=== PATIENT | female | born 1990 | race Caucasian/White ===

== ENCOUNTER 2017-06-20 02:43 | Inpatient (IN) | payer SELFPAY ==
[~2017-06-20] VITALS: Ht 152.4 cm; Wt 53.4 kg
[2017-06-20 05:22] VITALS: BP 119/72; PULSE 97; RESP 16; TEMP 98.2; O2SAT 97
[2017-06-20] MEDS ORDERED: ACETAMINOPHEN 325 MG TAB PO PRN (05:45)
[2017-06-20] MEDS ORDERED: diphenhydrAMINE HCL 50 MG CAP - HS PRN PO (05:45)
[2017-06-20] MEDS ORDERED: diphenhydrAMINE HCL 50 MG/ML VIAL - HS PRN IM (05:45)
[2017-06-20] MEDS ORDERED: ALUMINUM/MAGNESIUM/SIMETH 30 ML CUP PO PRN (05:45)
[2017-06-20] MEDS ORDERED: MAGNESIUM HYDROXIDE SUSP 30 ML CUP PO PRN (05:45)
[2017-06-20] MEDS ORDERED: hydrOXYzine HCL 50 MG TAB PO PRN (05:45)
[2017-06-20] MEDS: NICOTINE 21 MG/24 HR PATCH T-DERMAL SCH (08:19)
[2017-06-20] MEDS ORDERED: NICOTINE 21 MG/24 HR PATCH T-DERMAL SCH (10:30)
--- NOTE | 2017-06-20 10:41 | HHI.HP ---
Provisional Diagnosis Admission Date Jun 20, 2017 at 05:04 [place] I. Schizophrenia chronic paranoid type of 20.0, cognitive impairment r 41.89 Certification of Person's Competence To Provide Express and Informed Consent I have personally examined Kimberly Richmond , a person being served at [facility] on, Jun 20, 2017 10:23. Express and informed consent means consent voluntarily given in writing, by a competent person, after sufficient explanation and disclosure of the subject matter involved to enable the person to make a knowing and willful decision without any element of force, fraud, deceit, duress, or other form of constraint or coercion. This person is 18 years of age or older, is not now known to be incompetent to consent to treatment with a guardian advocate, and does not have a health care surrogate or proxy currently making medical treatment decisions. I have found this person to be one of the following: [] Competent to provide express and informed consent, as defined above, for voluntary admission to this facility and is competent to provide express and informed consent for treatment. He/she has the consistent capacity to make well reasoned, willful, and knowing decisions concerning his or her medical or mental health treatment. The person fully and consistently understands the purpose of the admission for examination/placement and is fully capable of personally exercising all rights assured [place]] Incompetent to provide express and informed consent to voluntary admission , and this is incompetent to provide express and informed consent to treatment. The person must be transferred to involuntary status and a petition for a guardian advocate filed with the Circuit Court. [] Refusing to provide express and informed consent to voluntary admission but is competent to provide express and informed consent for treatment. The person must be discharged or transferred to involuntary status. Form shall be completed within 24 hours of a person's arrival at the receiving facility and filed in the clinical record of each person: 1. Admitted on a voluntary basis 2. Permitted to provide express and informed consent to his/her own treatment 3. Allowed to transfer from involuntary to voluntary status 4. Prior to permitting a person to consent to his or her own treatment after having been previously found incompetent to consent to treatment. History of Present Illness Capacity: Lacks Capacity Psych Chief Complaint: noncompliance medication increased paranoia HPI Patient is a 27 year-old female comes here from [facility] Under [place] act signed by Dr. Arredondo dated 127 at 2230 hrs. it document reviewed and essentially stating patient out of psych meds getting paranoid and anxious states she is addicted to drugs states she wants to hurt herself states that she left she would try to her herself though plan history of suicide attempts and past urine toxicology negative with the facility. Patient transferred here under the [place] act. It appears the patient moved here with the past few weeks her month or so from [place] to live with her brother and mother. She had been receiving Zyprexa 15 mg at bedtime and Invega Sustenna 156 mg monthly. Appears but is somewhat extended interval between her moving here attempts to find clinicians in this area leading to patient's exacerbation of her mental illness. The physician at the emergency department did give the patient Zyprexa 15 mg orally last night. At the present time patient resting quietly in a bed nurse morgan present throughout session. Patient is an alert small female who appears significantly younger than her stated age. She is calm cooperative is somewhat confusing and disorganized. She does know her name, she knows she is in a hospital, she does not know the city. Though she notices [place]. She does not know the year the month the day or the date. She denies any voices at the present time though at times appear she is responding to internal stimuli. She make vague statements of self-harm. She is aware of her medications and does wish to continue them. However at the present time I feel patient does not have the capacity to make these decisions. It appears she has cognitive impairment. I will restart the end vague orally at 6 mg daily but only with consent of perhaps some other brother is health care surrogate. At this time patient does meet criteria for further inpatient care I will do first opinion request second opinion and as mentioned above will ask for healthcare surrogate and guardian advocate. Hopeless to be fairly short stay. Patient tolerates the oral intake of for to 3 days will then give her the Invega Sustenna injection. Patient to return home with family Review of Systems Constitutional: DENIES: Diaphoretic episodes, Fatigue, Fever, Weight gain, Weight loss, Chills, Dizziness, Change in appetite, Night Sweats Endocrine: DENIES: Abnorml menstrual pattern, Heat/cold intolerance, Polydipsia , Polyuria, Polyphagia Eyes: DENIES: Blurred vision, Diplopia, Eye inflammation, Eye pain, Vision loss , Photosensitivity, Double Vision Ears, nose, mouth, throat: DENIES: Tinnitus, Hearing loss, Vertigo, Nasal discharge, Oral lesions, Throat pain, Hoarseness, Ear Pain, Running Nose, Epistaxis, Sinus Pain, Toothache, Odynophagia Cardiovascular: DENIES: Chest pain, Palpitations, Syncope, Dyspnea on Exertion , PND, Lower Extremity Edema, Orthopnea, Claudication Gastrointestinal: DENIES: Abdominal pain, Black stools, Bloody stools, Constipation, Diarrhea, Nausea, Vomiting, Difficulty Swallowing, Anorexia Genitourinary: DENIES: Abnormal vaginal bleeding, Dysmenorrhea, Dyspareunia, Sexual dysfunction, Urinary frequency, Urinary incontinence, Urgency, Hematuria , Dysuria, Nocturia, Vaginal discharge Musculoskeletal: DENIES: Joint pain, Muscle aches, Stiffness, Joint Swelling, Back pain, Neck pain Integumentary: DENIES: Abnormal pigmentation, Pruritus, Rash, Nail changes, Breast masses, Breast skin changes, Nipple discharge Hematologic/lymphatic: DENIES: Bruising, Lymphadenopathy Immunologic/allergic: DENIES: Eczema, Urticaria Neurologic: DENIES: Abnormal gait, Headache, Localized weakness, Paresthesias, Seizures, Speech Problems, Tremor, Poor Balance Psychiatric: COMPLAINS OF: Anxiety, Confusion (vague), Hallucinations, Suicidal Ideation (vague) Past Psych History Psychological trauma history Unknown at this time Violence risk - others (6 mos) Low Violence risk - self (6 mos) Low to medium Substance Abuse History Drugs/Alcohol past 12 months Patient states she smokes large amount of cigarettes Past Family Social History Coded Allergies: No Known Allergies (Verified Allergy, Unknown, 06/20/17) Current Medications Medications (Trade) Dose Ordered Sig/Lizy Route Start Time Stop Time Status Last Admin (Atarax) 50 mg Q6H PRN PO 06/20/17 05:45 (Benadryl) 50 mg HS PRN PO 06/20/17 05:45 (Benadryl Inj) 50 mg HS PRN IM 06/20/17 05:45 (Tylenol) 650 mg Q4H PRN PO 06/20/17 05:45 (Milk Of Magnesia Liq) 30 ml DAILY PRN PO 06/20/17 05:45 (Mag-Al Plus Susp Liq) 30 ml Q6H PRN PO 06/20/17 05:45 (Habitrol 21 Mg Patch.24 Hr) 1 patch DAILY T-DERMAL 06/20/17 09:00 06/20/17 08:19 Miscellaneous Information 1 DAILY T-DERMAL 06/21/17 09:00 Family Psych History Unknown at this time Social History Patient recently moved here from [place] about living with mother and brother long history mental illness documented in [place] Patient's Strengths (min. 2) Patient verbal intellectual self care appears cooperative Physical Exam Patient medically clear [facility] the present time patient resting quietly in her bed is in no acute distress, no respiratory distress, no complaints of abdominal pain. Patient moves all 4 extremities DIFFICULTY no abnormal motor movements noted Vital Signs Vital Signs Date Time Temp Pulse Resp B/P (MAP) Pulse Ox O2 Delivery O2 Flow Rate FiO2 06/20/17 05:22 98.2 97 16 119/72 (88) 97 Mental Status Examination Appearance: Appropriate Consciousness: Alert Orientation: Person, Place, Date/Time (mildly confused confused) Motor Activity: Normal gait Speech: Hesitant, Other (childlike) Language: Adequate Fund of Knowledge: Poor Memory: Impaired Mood: Sad Affect: Other (good range and intensity) Thought Process & Associations: Linear, Other (childlike) Thought Content: Other (childlike) Hallucination Type: Auditory (vague) Delusion Type: Paranoid Suicidal Ideation: Yes (vague) Suicidal Plan: No Suicidal Intention: No Homicidal Ideation: No Homicidal Plan: No Homicidal Intention: No Insight: Poor Judgment: Poor Assessment & Plan Problem List: (1) Paranoid type schizophrenia, chronic state ICD Codes: F20.0 - Paranoid schizophrenia (2) Cognitive impairment ICD Codes: R41.89 - Other symptoms and signs involving cognitive functions and awareness Assessment & Plan Estimated LOS: 5-7 days this time patient does meet criteria for involuntary psychiatric hospitalization of the [place] act I'll do first opinion request second opinion. If her she does not have capacity thus I'll ask for healthcare surrogate and guardian advocate. With the permission we'll restart her Zyprexa , and oral and vague area for 2 or 3 days then give her the Invega sustained. Discharge Planning Probable return home with family need to verify mental health follow-up in the community Request HC Surrog/Guard Advoc?: Yes Kale Aviles MD Jun 20, 2017 10:41
[2017-06-20] MEDS: PALIPERIDONE ER 6 MG TAB PO SCH (16:30)
[2017-06-20 18:00] VITALS: BP 138/66; PULSE 91; RESP 18; TEMP 98.3; O2SAT 98
[2017-06-20 21:08] VITALS: BP 138/66; PULSE 91; RESP 17; TEMP 98.3; O2SAT 99
[2017-06-21 05:34] VITALS: BP 110/70; PULSE 82; RESP 17; TEMP 98.3; O2SAT 98
[2017-06-21] MEDS: REMOVE OLD PATCH T-DERMAL SCH (08:07)
[2017-06-21] MEDS: NICOTINE 21 MG/24 HR PATCH T-DERMAL SCH (08:07)
[2017-06-21] MEDS: PALIPERIDONE ER 6 MG TAB PO SCH (08:07)
--- NOTE | 2017-06-21 12:06 | PD.PSY.CON ---
Provisional Diagnosis Admission Date Jun 20, 2017 at 05:04 [place] I. Schizophrenia chronic paranoid type of 20.0, cognitive impairment r 41.89 History of Present Illness Service Psychiatry Consult Requested By Dr. Aviles Reason for Consult Second opinion Primary Care Physician Unknown HPI Patient is a 27 year-old female comes here from [facility] Under [place] act signed by Dr. Arredondo dated 127 at 2230 hrs. it document reviewed and essentially stating patient out of psych meds getting paranoid and anxious states she is addicted to drugs states she wants to hurt herself states that she left she would try to her herself though plan history of suicide attempts and past urine toxicology negative with the facility. Patient transferred here under the [place] act. It appears the patient moved here with the past few weeks her month or so from [place] to live with her brother and mother. She had been receiving Zyprexa 15 mg at bedtime and Invega Sustenna 156 mg monthly. Appears but is somewhat extended interval between her moving here attempts to find clinicians in this area leading to patient's exacerbation of her mental illness. The physician at the emergency department did give the patient Zyprexa 15 mg orally last night. At the present time patient resting quietly in a bed nurse morgan present throughout session. Patient is an alert small female who appears significantly younger than her stated age. She is calm cooperative is somewhat confusing and disorganized. She does know her name, she knows she is in a hospital, she does not know the city. Though she notices [place]. She does not know the year the month the day or the date. She denies any voices at the present time though at times appear she is responding to internal stimuli. She make vague statements of self-harm. She is aware of her medications and does wish to continue them. However at the present time I feel patient does not have the capacity to make these decisions. It appears she has cognitive impairment. I will restart the end vague orally at 6 mg daily but only with consent of perhaps some other brother is health care surrogate. At this time patient does meet criteria for further inpatient care I will do first opinion request second opinion and as mentioned above will ask for healthcare surrogate and guardian advocate. Hopeless to be fairly short stay. Patient tolerates the oral intake of for to 3 days will then give her the Invega Sustenna injection. Patient to return home with family. The patient is a 27 years old woman, domicile with his mother and brother in [place], [place], single, she recently moved to [place] from [place], with psychiatric history of schizophrenia, bipolar disorder, multiple psychiatric hospitalization, her last hospitalization was in [place] in 2017, she has being in Zyprexa 15 mg and Invega 156 monthly in the past, she's not in psychotropics at the moment, no significant medical history, who was brought to the hospital under [place] act due to paranoia ideation and anxiety and also to suicidal ideation. Patient was consulted to me for second opinion. On my evaluation the patient is calm, cooperative, a little childish and labile. He says that the reason she is here is because her brother wanted her to restart her medications. She denies mood symptoms, actually she says that she feels happy, denies paranoia, denies suicidal and homicidal ideation, she denies visual and auditory hallucinations. No disorganized behavior or speech, loosening of associations, manic symptoms are present. She is oriented 3. Review of Systems Except as stated in HPI: all other systems reviewed are Neg Past Family Social History Coded Allergies: No Known Allergies (Verified Allergy, Unknown, 06/20/17) Current Medications Medications (Trade) Dose Ordered Sig/Lizy Route Start Time Stop Time Status Last Admin (Atarax) 50 mg Q6H PRN PO 06/20/17 05:45 (Benadryl) 50 mg HS PRN PO 06/20/17 05:45 (Benadryl Inj) 50 mg HS PRN IM 06/20/17 05:45 (Tylenol) 650 mg Q4H PRN PO 06/20/17 05:45 (Milk Of Magnesia Liq) 30 ml DAILY PRN PO 06/20/17 05:45 (Mag-Al Plus Susp Liq) 30 ml Q6H PRN PO 06/20/17 05:45 06/21/17 08:06 (Habitrol 21 Mg Patch.24 Hr) 1 patch DAILY T-DERMAL 06/20/17 09:00 06/21/17 08:07 Miscellaneous Information 1 DAILY T-DERMAL 06/21/17 09:00 06/21/17 08:07 (Invega Er) 6 mg DAILY PO 06/20/17 11:00 Future hold 06/21/17 08:07 (ZyPREXA) 15 mg HS PO 06/20/17 21:00 Future hold 06/20/17 20:40 Patient's Strengths (min. 2) Patient verbal intellectual self care appears cooperative Physical Exam Vital Signs Vital Signs Date Time Temp Pulse Resp B/P (MAP) Pulse Ox O2 Delivery O2 Flow Rate FiO2 06/21/17 05:34 98.3 82 17 110/70 (83) 98 Mental Status Examination Appearance: Appropriate Consciousness: Alert Orientation: Person, Place, Date/Time (mildly confused confused) Motor Activity: Normal gait Speech: Hesitant, Other (childlike) Language: Adequate Fund of Knowledge: Poor Memory: Impaired Mood: Sad Affect: Other (good range and intensity) Thought Process & Associations: Linear, Other (childlike) Thought Content: Other (childlike) Hallucination Type: Auditory (vague) Delusion Type: Paranoid Suicidal Ideation: Yes (vague) Suicidal Plan: No Suicidal Intention: No Homicidal Ideation: No Homicidal Plan: No Homicidal Intention: No Insight: Poor Judgment: Poor Assessment & Plan Problem List: (1) Paranoid type schizophrenia, chronic state ICD Codes: F20.0 - Paranoid schizophrenia Assessment & Plan: I have seen and examined this patient, reviewed recommendation, I agree and concur with Dr. Aviles's assessment and plan. (2) Cognitive impairment ICD Codes: R41.89 - Other symptoms and signs involving cognitive functions and awareness Assessment & Plan Estimated LOS: days Request HC Surrog/Guard Advoc?: Yes Micah Arias MD Jun 21, 2017 12:06
--- NOTE | 2017-06-21 15:17 | HHI.PYPN ---
Subjective Chief Complaint: noncompliance medication increased paranoia Remarks Patient seen in her room with nurse Lizz, chart review, patient compliant medication. Continues to isolate somewhat continues to acknowledge auditory hallucinations of a threatening frightening nature. She denies suicidality homicidality at this time. Patient so far tolerating oral medications without problems if she remains tolerating Topamax 21st will consider addition of the Invega Sustenna Review of Systems Except as stated in HPI: all other systems reviewed are Neg Mental Status Examination Appearance: Appropriate Consciousness: Alert Orientation: Person, Place, Date/Time (mildly confused confused) Motor Activity: Normal gait Speech: Hesitant, Other (childlike) Language: Adequate Fund of Knowledge: Poor Memory: Impaired Mood: Sad Affect: Other (good range and intensity) Thought Process & Associations: Linear, Other (childlike) Thought Content: Other (childlike) Hallucination Type: Auditory (vague) Delusion Type: Paranoid Suicidal Ideation: Yes (vague) Suicidal Plan: No Suicidal Intention: No Homicidal Ideation: No Homicidal Plan: No Homicidal Intention: No Insight: Poor Judgment: Poor Results Vitals/IOs Vital Signs Date Time Temp Pulse Resp B/P (MAP) Pulse Ox O2 Delivery O2 Flow Rate FiO2 06/21/17 05:34 98.3 82 17 110/70 (83) 98 Assessment & Plan Problem List: (1) Paranoid type schizophrenia, chronic state ICD Codes: F20.0 - Paranoid schizophrenia (2) Cognitive impairment ICD Codes: R41.89 - Other symptoms and signs involving cognitive functions and awareness Assessment & Plan Estimated LOS: days patient continues psychotic delusional, isolating somewhat though no behavioral issues. Compliant medications patient continues to show compliance consider vagus sustain of the next one to 2 days Justification for Cont. Inpt. At this time patient decompensated placed in the lower level of care Discharge Planning Return to family Request HC Surrog/Guard Advoc?: Yes Kale Aviles MD Jun 21, 2017 15:17
[2017-06-21 15:50] VITALS: BP 143/76; PULSE 79; RESP 16; TEMP 98.3; O2SAT 97
[2017-06-21 18:00] VITALS: BP 143/76; PULSE 79; RESP 15; TEMP 98.3; O2SAT 97
[2017-06-22 05:57] VITALS: BP 106/57; PULSE 97; RESP 16; TEMP 98; O2SAT 99
[2017-06-22] MEDS: REMOVE OLD PATCH T-DERMAL SCH (08:21)
[2017-06-22] MEDS: PALIPERIDONE ER 6 MG TAB PO SCH (08:21)
[2017-06-22] MEDS: NICOTINE 21 MG/24 HR PATCH T-DERMAL SCH (08:21)
--- NOTE | 2017-06-22 11:56 | HHI.PYPN ---
Subjective Chief Complaint: noncompliance medication increased paranoia Remarks Patient seen in day room with nurse Lizz, and counselor Alesia. Chart reviewed. Patient compliant medication. I'll cooperative now denying suicidality, states voices are just about gone. Patient showing no problems with the oral invega, will orderinvega sustena to 34 mg IM today. If patient tolerates injection will consider discharge tomorrow to family with follow-up in the community, perhaps [facility] act Review of Systems Except as stated in HPI: all other systems reviewed are Neg Mental Status Examination Appearance: Appropriate Consciousness: Alert Orientation: Person, Place, Date/Time (mildly confused confused) Motor Activity: Normal gait Speech: Hesitant, Other (childlike) Language: Adequate Fund of Knowledge: Poor Memory: Impaired Mood: Sad Affect: Other (good range and intensity) Thought Process & Associations: Linear, Other (childlike) Thought Content: Other (childlike) Hallucination Type: Auditory (vague) Delusion Type: Paranoid Suicidal Ideation: Yes (vague) Suicidal Plan: No Suicidal Intention: No Homicidal Ideation: No Homicidal Plan: No Homicidal Intention: No Insight: Poor Judgment: Poor Results Vitals/IOs Vital Signs Date Time Temp Pulse Resp B/P (MAP) Pulse Ox O2 Delivery O2 Flow Rate FiO2 06/22/17 05:57 98.0 97 16 106/57 (73) 99 Assessment & Plan Problem List: (1) Paranoid type schizophrenia, chronic state ICD Codes: F20.0 - Paranoid schizophrenia (2) Cognitive impairment ICD Codes: R41.89 - Other symptoms and signs involving cognitive functions and awareness Assessment & Plan Estimated LOS: days patient somewhat improved, voices are diminished, she medication adjustments above Justification for Cont. Inpt. With this time patient will decompensate and placed a lower level of care Discharge Planning Possibly to return to family tomorrow Request HC Surrog/Guard Advoc?: Yes Kale Aviles MD Jun 22, 2017 11:56
[2017-06-22] MEDS ORDERED: PALIPERIDONE PALMITATE 234 MG/1.5 ML SYRINGE IM ONE (14:00)
[2017-06-22 18:00] VITALS: BP 134/84; PULSE 88; RESP 16; TEMP 97.7; O2SAT 99
[2017-06-23 06:00] VITALS: BP 130/67; PULSE 100; RESP 16; TEMP 97.9; O2SAT 94
[2017-06-23] MEDS: REMOVE OLD PATCH T-DERMAL SCH (09:00)
[2017-06-23] MEDS: PALIPERIDONE ER 6 MG TAB PO SCH (09:17)
[2017-06-23] MEDS: NICOTINE 21 MG/24 HR PATCH T-DERMAL SCH (09:17)
[2017-06-23] MEDS ORDERED: PALI234P IM (15:49)
[2017-06-23] MEDS ORDERED: INVE6TAB3 PO (15:49)
[2017-06-23] MEDS ORDERED: OLAN15TA PO (15:49)
--- NOTE | 2017-06-23 15:54 | HHI.DS ---
Psychiatry Discharge Summary Inpatient Psychiatric care?: Yes Advance Directive: No Reason Not Provided: pt declined Mental Health AdvanceDirective: No Health Care Proxy: No Admission Admission Date Jun 20, 2017 at 05:04 Admission Diagnosis: (1) Paranoid type schizophrenia, chronic state ICD Code: F20.0 - Paranoid schizophrenia (2) Cognitive impairment ICD Code: R41.89 - Other symptoms and signs involving cognitive functions and awareness Brief History Patient is a 27 year-old female comes here from [facility] Under [facility] act signed by Dr. Arredondo dated 127 at 2230 hrs. it document reviewed and essentially stating patient out of psych meds getting paranoid and anxious states she is addicted to drugs states she wants to hurt herself states that she left she would try to her herself though plan history of suicide attempts and past urine toxicology negative with the facility. Patient transferred here under the [place] act. It appears the patient moved here with the past few weeks her month or so from [place] to live with her brother and mother. She had been receiving Zyprexa 15 mg at bedtime and Invega Sustenna 156 mg monthly. Appears but is somewhat extended interval between her moving here attempts to find clinicians in this area leading to patient's exacerbation of her mental illness. The physician at the emergency department did give the patient Zyprexa 15 mg orally last night. At the present time patient resting quietly in a bed nurse morgan present throughout session. Patient is an alert small female who appears significantly younger than her stated age. She is calm cooperative is somewhat confusing and disorganized. She does know her name, she knows she is in a hospital, she does not know the city. Though she notices [place]. She does not know the year the month the day or the date. She denies any voices at the present time though at times appear she is responding to internal stimuli. She make vague statements of self-harm. She is aware of her medications and does wish to continue them. However at the present time I feel patient does not have the capacity to make these decisions. It appears she has cognitive impairment. I will restart the end vague orally at 6 mg daily but only with consent of perhaps some other brother is health care surrogate. At this time patient does meet criteria for further inpatient care I will do first opinion request second opinion and as mentioned above will ask for healthcare surrogate and guardian advocate. Hopeless to be fairly short stay. Patient tolerates the oral intake of for to 3 days will then give her the Invega Sustenna injection. Patient to return home with family. The patient is a 27 years old woman, domicile with his mother and brother in [place], [place], single, she recently moved to [place] from [place], with psychiatric history of schizophrenia, bipolar disorder, multiple psychiatric hospitalization, her last hospitalization was in [place] in 2017, she has being in Zyprexa 15 mg and Invega 156 monthly in the past, she's not in psychotropics at the moment, no significant medical history, who was brought to the hospital under [place] act due to paranoia ideation and anxiety and also to suicidal ideation. Patient was consulted to me for second opinion. On my evaluation the patient is calm, cooperative, a little childish and labile. He says that the reason she is here is because her brother wanted her to restart her medications. She denies mood symptoms, actually she says that she feels happy, denies paranoia, denies suicidal and homicidal ideation, she denies visual and auditory hallucinations. No disorganized behavior or speech, loosening of associations, manic symptoms are present. She is oriented 3. Tobacco Use In Past 30 Days: 5 or More Cigarettes/Day Alcohol Use: 4 or More Times Per Week Hospital Course Patient hospital course was uneventful calm show compliance medication day 1. She is been no behavioral problem. That hallucinations have markedly diminished. Patient has had no difficulty with the injectable. At this time I feel patient reached maximum benefit of this hospitalization she will be discharged today to her family with Rx 1 month, injection follow-up 07/20. Follow[facility]up [facility] Results Blood Pressure 130 / 67 Vital Signs Date Time Temp Pulse Resp B/P (MAP) Pulse Ox O2 Delivery O2 Flow Rate FiO2 06/23/17 06:00 97.9 100 16 130/67 (88) 94 Please see EMR for full lab results Summary of Procedures None done Pending results at discharge: No Medications # of Antipsychotic meds at D/C: 2 Appropriate >1 Antipsych meds?: 2 (would suggest to outpatient clinician possible taper of at bedtime Zyprexa) Approp Antipsych med options 1 - Minimum of three failed multiple trials of monotherapy. 2 - Documented plan to taper to monotherapy due to previous use of multiple meds OR cross-taper in progress at D/C. 3 - Documentation of augmentation of Clozapine. 4 - Justification other than those listed in allowable values 1-3, document here : Discharge Discharge Date: Jun 23, 2017 Discharge Diagnosis: (1) Cognitive impairment Diagnosis: Secondary ICD Code: R41.89 - Other symptoms and signs involving cognitive functions and awareness (2) Paranoid type schizophrenia, chronic state Diagnosis: Principal ICD Code: F20.0 - Paranoid schizophrenia Pt Condition on Discharge: Stable Discharge Disposition: Discharge Home Discharge Instructions Diet Instructions: As Tolerated, No Restrictions Activities you can perform: Regular-No Restrictions Scheduled Appointment: Kendall Whit Manohar Appointment Date: Jun 24, 2017 Appointment Time: 7:30 a.m. Discharge Time > 30 minutes Mental Status Examination Appearance: Appropriate Consciousness: Alert Orientation: Person, Place, Date/Time (mildly confused confused) Motor Activity: Normal gait Speech: Hesitant, Other (childlike) Language: Adequate Fund of Knowledge: Poor Memory: Impaired Mood: Sad Affect: Other (good range and intensity) Thought Process & Associations: Linear, Other (childlike) Thought Content: Other (childlike) Hallucination Type: Auditory (vague) Delusion Type: Paranoid Suicidal Ideation: Yes (vague) Suicidal Plan: No Suicidal Intention: No Homicidal Ideation: No Homicidal Plan: No Homicidal Intention: No Insight: Poor Judgment: Poor Discharge/Advance Care Plan Health Problems: (1) Paranoid type schizophrenia, chronic state (2) Cognitive impairment Goals to promote your health * To prevent worsening of your condition and complications * To maintain your health at the optimal level Directions to meet your goals Take your medications as prescribed Follow your dietary instruction Follow activity as directed Keep your appointments as scheduled Take your immunizations and boosters as scheduled If your symptoms worsen call your PCP, if no PCP go to Urgent Care Center or Emergency Room For 24/ questions related to your inpatient stay or results of tests pending at discharge, please contact Dr. Kale Aviles at Smoking is Dangerous to Your Health. Avoid second hand smoking Kale Aviles MD Jun 23, 2017 15:54
== END 2017-06-23 16:45 | disposition home or self-care (01) | DRG 885 ==
LOC: H260 05:04
PROVIDERS: ADMIT Psychiatry & Neurology Psychiatry; ATTEND Psychiatry & Neurology Psychiatry
DX: F20.0 Paranoid schizophrenia (principal); Z91.14 Patient's other noncompliance with medication regimen; F17.210 Nicotine dependence, cigarettes, uncomplicated; R41.89 Other symptoms and signs involving cognitive functions and awareness
CPT/HCPCS: J2426; Q0163